=== PATIENT | male | born 1950 | race Two or more races ===

== ENCOUNTER 2017-12-21 06:19 | Day surgery (SDC) | payer MEDICARE, OTHER ==
[2017-12-21] MEDS ORDERED: LIDOCAINE HCL 2% 20 ML VIAL MC ONE (06:20)
[2017-12-21] MEDS ORDERED: LABETALOL HCL 100 MG/20 ML VIAL MC ONE (06:20)
[2017-12-21] MEDS ORDERED: CEFAZOLIN 1 G VIAL MC ONE (06:20)
[2017-12-21] MEDS ORDERED: KETOROLAC TROMETHAMINE 30 MG INJ IM ONE (06:20)
[2017-12-21] MEDS ORDERED: ONDANSETRON 4 MG/2 ML VIAL IV ONE (06:20)
[2017-12-21] MEDS ORDERED: DEXAMETHASONE SOD PHOSPHATE 4 MG INJ IV ONE (06:20)
[2017-12-21] MEDS ORDERED: EPHEDRINE SULFATE 50 MG/ML AMPUL MC ONE (06:20)
[2017-12-21] MEDS ORDERED: PROPOFOL 200 MG/20 ML BOTTLE IV ONE (06:20)
[2017-12-21 07:10] LABS: BASOPHILS # (AUTO) 0.1 K/uL (0.0-8.0); BASOPHILS % (AUTO) 0.8 % (0.0-2.0); EOSINOPHILS # (AUTO) 0.3 K/uL (0.0-0.7); EOSINOPHILS % (AUTO) 4.2 % (0.0-7.0); HEMATOCRIT 40.1 % (36.7-47.1); LYMPHOCYTES # (AUTO) 2.4 K/uL (20.0-40.0); LYMPHOCYTES % (AUTO) 36.7 % (20.5-51.5); MEAN CORPUSCULAR HEMOGLOBIN 30.7 uug (23.8-33.4); MEAN CORPUSCULAR HGB CONC 35 g/dL (32.5-36.3); MEAN CORPUSCULAR VOLUME 88.4 fL (73.0-96.2); MONOCYTES # (AUTO) 0.5 K/uL (2.0-10.0); MONOCYTES % (AUTO) 8.3 % (0.0-11.0); NEUTROPHILS # (AUTO) 3.3 K/uL (1.8-8.9); PLATELET COUNT (AUTO) 194 K/uL (152-348); RED BLOOD CELL COUNT(AUTO) 4.54 MIL/uL (4.06-5.63); WHITE BLOOD COUNT (AUTO) 6.5 K/uL (3.6-10.2)
[2017-12-21 07:13] LABS: CREATININE 0.7 mg/dL (0.6-1.3); POTASSIUM 4.2 mmol/L (3.5-5.1)
[2017-12-21 07:18] LABS: BILIRUBIN,TOTAL 0.9 mg/dL (0.2-1.0); TOTAL PROTEIN, SERUM 8.3 g/dL (6.4-8.2)
[2017-12-21 07:22] LABS: *BILIRUBIN,URIN NEGATIVE (NEGATIVE); *BLOOD, URINE NEGATIVE (NEGATIVE); *CLARITY,URINE CLEAR (CLEAR); *COLOR,URINE YELLOW (YELLOW); *KETONES,URINE NEGATIVE (NEGATIVE); *PROTEIN,URINE NEGATIVE (NEGATIVE); PH,URINE 7.5 (5.0-8.0); UGLUCOSE NEGATIVE (NEGATIVE)
[2017-12-21 07:23] LABS: LEUKOCYTE ESTERASE ,URINE NEGATIVE (NEGATIVE); NITRITE, URINE NEGATIVE (NEGATIVE)
[2017-12-21 07:26] LABS: BACTERIA,URINE NONE SEEN /HPF (NONE SEEN); RBC,URINE NONE SEEN /HPF (0-3); SQUAMOUS EPITHELIAL CELL,UR FEW /HPF (NONE SEEN); WBC,URINE 0-3 /HPF (0-3)
[2017-12-21] MEDS ORDERED: SEVOFLURANE 250 ML BOTTLE ONE (09:45)
[2017-12-21] MEDS ORDERED: BUPIVACAINE 0.25% 30 ML VIAL ONE (09:54)
[2017-12-21] MEDS ORDERED: ACETAMINOPHEN/CODEINE 300-30 MG TABLET ONE (12:05)
== END 2017-12-21 12:45 | disposition home or self-care (01) ==
LOC: DS 06:19
PROVIDERS: ATTEND Specialist
DX: M23.204 Derangement of unspecified medial meniscus due to old tear or injury, left knee (principal); M23.201 Derangement of unspecified lateral meniscus due to old tear or injury, left knee; M94.262 Chondromalacia, left knee; I10 Essential (primary) hypertension; E66.9 Obesity, unspecified
CPT/HCPCS: 36415; 85025; 85730; A4663; J0690; J1100; J1885; J2405; J3490; J7120